=== PATIENT | female | born 1950 | race Caucasian/White ===

== ENCOUNTER 2016-08-09 06:17 | Day surgery (SDC) | payer MEDICARE, BC ==
[~2016-08-09] VITALS: Ht 160 cm; Wt 68.2 kg
[2016-08-09 06:41] VITALS: BP 144/75; PULSE 78; RESP 20; TEMP 98.5; O2SAT 93
[2016-08-09] MEDS ORDERED: MULT1TAB84 PO (06:48)
[2016-08-09] MEDS ORDERED: ATOR20TA15 PO (06:48)
[2016-08-09] MEDS ORDERED: ASPI-147 PO (06:48)
[2016-08-09] MEDS ORDERED: PRED10 PO (06:48)
[2016-08-09] MEDS ORDERED: COQ1100C (06:48)
[2016-08-09 07:19] LABS: BASOPHIL # 0.1 TH/MM3 (0-0.2); BASOPHIL % 0.6 % (0.0-2.0); EOSINOPHIL # 0.1 TH/MM3 (0-0.4); EOSINOPHIL % 0.9 % (0.0-4.0); HEMATOCRIT 43.5 % (35.0-46.0); HEMO FLAGS DIFF FINAL; LYMPH % 5.9 % (9.0-44.0); LYMPHOCYTE # 0.7 TH/MM3 (1.0-4.8); MEAN CELL VOLUME 93.9 FL (80.0-100.0); MEAN CORPUSCULAR HEMOGLOBIN 31.4 PG (27.0-34.0); MEAN CORPUSCULAR HGB CONC 33.4 % (32.0-36.0); MONO % 4.7 % (0.0-8.0); NEUT % 87.9 % (16.0-70.0); PLATELET COUNT 226 TH/MM3 (150-450); RED BLOOD COUNT 4.64 MIL/MM3 (4.00-5.30); RED CELL DISTRIBUTION WIDTH 15.8 % (11.6-17.2); WHITE BLOOD COUNT 11.3 TH/MM3 (4.0-11.0)
[2016-08-09] MEDS ORDERED: ceFAZolin 2 GM PREMIX 50 ML IV SCH (07:45)
[2016-08-09] MEDS ORDERED: SODIUM CHLOR 0.9% 1000 ML INJ 1,000 ML IV SCH (07:45)
[2016-08-09 07:51] LABS: APTT (PATIENT) 25.4 SEC (24.3-30.1); INTERNATIONAL NORMALIZED RATIO 0.9 RATIO
[2016-08-09] MEDS ORDERED: LIDOCAINE 1%/EPINEPHrine 1:100,000 SOLN 20 ML VIAL ONE (08:14)
--- NOTE | 2016-08-09 09:06 | PD.RAD ---
Post Procedure Progress Note Pre Procedure Diagnosis: (1) Lung cancer Post Procedure Diagnosis: (1) Lung cancer Procedure Date: Aug 09, 2016 Supervising Radiologist: Santiago Tabor JR Proceduralist/Assist: Deidre Rodriguez, RT(R)(CV), Yajaira Navarro RT(R)() Anesthesia: Local Plan of Activity Patient to Unit: ROPU Patient Condition: Good See PACS Report for procedural detail/treatment Central Venous Access Device Procedure 1 Left Infusaport Removal single lumen Findings: No signs of infection. Port removed in its entirety Plan F/U with IR in 10-14 days for a site check Jr. Leander,Santiago العراقي MD Aug 09, 2016 09:06
[2016-08-09 09:15] VITALS: BP 117/60; PULSE 78; RESP 20; TEMP 98.1; O2SAT 93
[2016-08-09 09:30] VITALS: BP 107/71; PULSE 86; RESP 20; O2SAT 93
[2016-08-09 09:45] VITALS: BP 119/65; PULSE 76; RESP 20; O2SAT 93
--- NOTE | 2016-08-09 11:44 | RADRPT ---
EXAM DATE/TIME: 08/09/2016 07:34 [place] COMPARISON: No previous studies available for comparison. INDICATIONS : Patient with history of lung cancer. Port no longer needed. MEDICAL HISTORY : 1. Lung cancer 2. TIA SURGICAL HISTORY : 1. Left port placment 2.Mediastinoscopy 3. Biopsy 4. tubal ligation 5.Lt port removal ENCOUNTER: Initial ACUITY: > 1 year PAIN SCORE: 0/10 Prophylactic antibiotics were administered with appropriate pre-procedure timing. PROCEDURE : 1. Removal of [id number]. The risk, benefits and potential complications of Cmxjhn-i-[id number] removal were discussed. Written conse nt was obtained. The patient was given the option of local anesthetic versus conscious sedation. She chose l ocal anesthetic. The patient was placed supine. The chest wall was prepped in sterile fashion. Full sterile techniqu e was used, including cap, mask, sterile gloves and gown, and a large sterile sheet. Hand hygiene an d 2% chlorhexidine and/or Betadine/alcohol prep was utilized per protocol for cutaneous antisepsis. The skin and subcutaneous tissues were infiltrated with local anesthetic solution. A small incision w as made, the subcutaneous pocket was opened. The port was dissected from the subcutaneous tissues and easily removed in one piece. The pocket incision was closed with subcuticular Vicryl suture. Steri -Strips were applied. The patient tolerated the procedure well and there were no complications. The patient was sent to [facility] anesthesia recovery in stable condition. CONCLUSION: Uncomplicated port removal as above. Santiago Tabor Jr., MD on August 09, 2016 at 11:40 Board Certified Radiologist. This report was verified electronically.
== END 2016-08-09 09:45 | disposition home or self-care (01) ==
LOC: HROP 06:17 → HRIP 06:18 → HROP 09:45
PROVIDERS: ATTEND Internal Medicine Hematology & Oncology
DX: C34.90 Malignant neoplasm of unspecified part of unspecified bronchus or lung (principal); Z86.73 Personal history of transient ischemic attack (TIA), and cerebral infarction without residual deficits
CPT/HCPCS: 36590; 85025; 85610; 85730; J0690; J7030